=== PATIENT | male | born 1980 | race Caucasian/White ===

== ENCOUNTER 2021-04-30 14:40 | Inpatient (IN) | payer OTHER, SELFPAY ==
--- NOTE | ~2021-04-30 | CT_ITS ---
EXAMINATION: CT abdomen pelvis w con DATE: 04/30/2021 16:37 INDICATION: Pelvic discomfort with left-sided pelvic pain TECHNIQUE: Computed tomography (CT) of the abdomen and pelvis was performed with 100 mL Omnipaque-350 intravenous contrast. Automated exposure control and iterative reconstruction technique were employe d. The dose-length product was 200.04 mGy-cm. COMPARISON: None FINDINGS: Mild emphysema in the right middle lobe. Heart size is normal. No pericardial or pleural effusion. Th ere are pulmonary emboli in each of the basilar segmental pulmonary arteries and many of the subsegme ntal pulmonary arteries of the left lower lobe. There is also deep venous thrombosis in the left supe rficial femoral and common femoral veins. Small enhancing paraesophageal lymph node. There are 5 large peripherally enhancing centrally lower attenuation likely necrotic masses throughou t the liver which measure between 8.2 cm and 3.4 cm . Numerous additional less than 2.5 cm scattered low-attenuation, peripherally enhancing masses are seen many of the remaining organs,, port in the ri ght kidney, 5 and the left kidney, 2 in the spleen, 4 in the head and body of the pancreas 2 in the l eft adrenal gland and one in the right adrenal gland. 1.8 cm enhancing nodule in the retroperitoneal fat anterior to the right iliac crest, 10 mm peripherally enhancing nodule in the more caudal right p soas muscle. A few subcentimeter enhancing nodules the muscles in the left quadratus lumborum muscle just lateral to the left L3 transverse process and in the right gluteus jarocho muscle. A couple subc entimeter enhancing nodules in the subcutaneous fat anterior to the left rectus abdominis muscle and at the left buttock. Gallbladder is normal. Bilateral nonobstructing nephrolithiasis with 3 mm nonobstructing stone in an upper pole calyx of the right kidney and four <3 mm stones in the left kidney. No abnormal bowel wall thickening or obstruction. Bladder is normal. No free intraperitoneal gas or fluid. There are severa l mildly enlarged and heterogeneously enhancing left inguinal lymph nodes as well as at the distal le ft common iliac chain. No suspicious lytic or blastic bone lesions. IMPRESSION: 1. Pulmonary emboli in multiple left lower lobar pulmonary arteries as well as deep venous thrombosis at the left common femoral and superficial femoral veins. 2. Widespread likely metastatic disease involving the liver, spleen, pancreas, bilateral adrenal glan ds and kidneys as well as several scattered heterogeneous enhancing likely metastatic lymph nodes and a few small enhancing nodules in the muscles and subcutaneous and retroperitoneal fat. Muscular fatt y metastatic lesions are somewhat atypical/abdomen the setting of melanoma. Would recommend ultrasoun d-guided biopsy of the left inguinal lymph nodes and physical exam for skin lesions along the left lo wer extremity. This and the findings of pulmonary emboli and deep venous thrombosis were discussed wi Dr. Estrada at 5:00 PM 3. Nonobstructing bilateral nephrolithiasis. 4. Mild emphysema in the right middle lobe. Reviewed, dictated and finalized at location B. [facility] IMPRESSION: 1. Pulmonary emboli in multiple left lower lobar pulmonary arteries as well as deep venous thrombosis at the left common femoral and superficial femoral veins . 2. Widespread likely metastatic disease involving the liver, spleen, pancreas, bilateral adrenal glands and kidneys as well as several scattered heterogeneous enhancing likely metastatic lymph nodes and a few small enhancing nodules in t he muscles and subcutaneous and retroperitoneal fat. Muscular fatty metastatic lesions are somewhat atypical/abdomen the setting of melanoma. Would recommend ultrasound-guided biopsy of th
--- NOTE | ~2021-04-30 | US_ITS ---
EXAMINATION: US biopsy lymph node DATE: 05/01/2021 11:09 INDICATION: Enlarged left inguinal lymph nodes TECHNIQUE: The procedure including the risks and benefits was discussed with the patient. Risks discu ssed included bleeding and infection. The patient understood the risks and agreed to proceed. The sk in overlying the left groin was prepped and draped in usual sterile fashion. Anesthetic was administ ered with 1% lidocaine subcutaneously. An 18 gauge core biopsy needle was advanced under continuous ultrasound observation to the lesion of interest. 3 core biopsy specimens were obtained. The needle was removed and the entry site was cleaned and dressed. Post procedure ultrasound demonstrated no h emorrhage. FINDINGS: Ultrasound images demonstrate a 3.9 x 1.8 x 3.1 enlarged left inguinal lymph nodes. Subsequ ent images demonstrate biopsy needle advanced into the lymph node. IMPRESSION: 1. Successful Ultrasound-guided biopsy of 3.9 x 1.8 x 3.1 cm left inguinal lymph node. Reviewed, dictated and finalized at location B. [facility] IMPRESSION: 1. Successful Ultrasound-guided biopsy of 3.9 x 1.8 x 3.1 cm left inguinal lymp h node.
[2021-04-30 14:50] VITALS: BP 93/78; PULSE 95; RESP 20; TEMP 36.4; O2SAT 97
[2021-04-30] MEDS: SODIUM CHLORIDE 0.9% IV 1,000 ML 999 ML IV CONT ×2 (15:40→17:21)
[2021-04-30 15:43] LABS: Hematocrit 43.3 % (40.0-54.0); Mean Corpuscular HGB Conc 32.3 g/dL (32.0-36.0); Mean Corpuscular Hemoglobin 29.7 pg (27.0-31.0); Mean Corpuscular Volume 91.7 fL (78.0-102.0); Mean Platelet Volume 9.9 fl (8.7-11.0); Platelet Count Result 286 K/mm3 (150-420); Red Blood Count 4.72 M/mm3 (4.70-6.10)
[2021-04-30] MEDS: MORPHINE SULFATE (*CRX) 2 MG/ML INJ IV PUSH ×3 (15:45→23:59)
--- NOTE | 2021-04-30 15:45 | PC.NURSE ---
Lab called with WBC of 22.0. Dr. Valencia notified.
--- NOTE | 2021-04-30 15:49 | PC.NURSE ---
report to LEXY Valencia. resuming care of patient.
[2021-04-30 16:00] VITALS: BP 107/80; PULSE 77; RESP 14; O2SAT 100
[2021-04-30 16:01] LABS: Alanine Aminotransferase 15 U/L (16-63); Alkaline Phosphatase 257 U/L (46-116); Anion Gap 13 mmol/L (8-16); Aspartate Amino Transferase 18 U/L (15-37); Bilirubin,Total 0.3 mg/dL (0.00-1.00); Blood Urea Nitrogen 67 mg/dL (7-18); Calcium 9.7 mg/dL (8.5-10.1); Carbon Dioxide 27 mmol/L (21-32); Chloride 96 mmol/L (98-108); Estimated CRCL calculation 35 ml/min; Estimated Glomerular Filt Rate 34; Glucose 84 mg/dL (70-99); Osmolality Calculated 300 mOsm/kg (285-295); Potassium 3.8 mmol/L (3.5-5.1); Sodium 136 mmol/L (136-145); Total Protein 8.5 g/dL (6.4-8.2)
[2021-04-30 16:05] LABS: Lactic Acid Reflex 1.1 mmol/L (0.4-2.0)
[2021-04-30 16:13] LABS: CRP 12.2 mg/dL (0.0-0.9)
[2021-04-30 16:21] LABS: Add Urine Microscopic? YES; Appearance Urine Clear (Clear); Bilirubin Urine Negative (Negative); Blood Urine 2+ (Negative); Color Urine Yellow (Yellow); Glucose Urine UA Negative (Negative); Ketones Urine Negative (Negative); Leukocyte Esterase Ur Negative (Negative); Nitrate Urine Negative (Negative); Protein Urine Negative (Negative); Specific Grav Ur 1.025 (1.010-1.020); Urobilinogen Urine 0.2 mg/dL (0.2-1.0); pH Urine 5.5 (5.0-8.0)
[2021-04-30 16:25] LABS: Bacteria Urine 1+ /hpf; Squamous Epithelial Cell Urine Rare /hpf (Few); WBC Urine None seen /hpf (0-3)
[2021-04-30 16:26] LABS: Band Neutrophils Percent 2 % (0-6); Basophils Percent Manual 0 % (0-1); Eosinophils Absolute Manual 1.76 K/mm3 (0.02-0.5); Eosinophils Percent Manual 8 % (1-6); Lymphocytes Absolute Manual 1.98 K/mm3 (1.1-4.5); Lymphocytes Percent Manual 9 % (18-44); Monocytes Absolute Manual 0.88 K/mm3 (0.1-0.90); Monocytes Percent Manual 4 % (3-9); Neutrophils Absolute Manual 17.38 K/mm3 (1.3-6.7); Neutrophils Percent Manual 77 % (46-73); Platelet Estimate Adequate (Adequate); Total Cells Counted 100
[2021-04-30 17:00] VITALS: BP 101/73; PULSE 77; RESP 14; O2SAT 99
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
[2021-04-30 17:56] VITALS: BP 102/76; PULSE 85; RESP 16; TEMP 36.6; O2SAT 100
[2021-04-30 18:30] VITALS: BP 98/72; PULSE 82; RESP 16; O2SAT 100
[2021-04-30 18:53] VITALS: BMI 14.6
[2021-04-30] MEDS: SODIUM CHLORIDE 0.9% IV 1,000 ML 100 ML IV CONT (19:52)
[2021-04-30] MEDS: ENOXAPARIN 60 MG/0.6 ML SYRINGE SUB-Q (19:52)
[2021-04-30 20:00] VITALS: BP 105/67; PULSE 92; RESP 20; TEMP 36.2; O2SAT 95
[2021-04-30] MEDS: DIVALPROEX SODIUM DR 250 MG TABEC 500 MG PO (20:03)
--- NOTE | 2021-04-30 20:17 | ADMGEN ---
This patient, Marcus Rodriguez, was admitted to 2nd Floor Room 227-2. Patient/family oriented to hospital policies and general routines including ID bracelet, bed and alarms, visiting hours, pain management, procedures, bathroom and other care routines, personal items, smoking policy, room service/diet, and visiting hours. Information on how to activate the Rapid Response Team has been discussed. Patient/Family are encouraged to report perceived risks to care and to ask questions if they do not understand what they are told or what they should do.
--- NOTE | 2021-04-30 22:23 | PC.NURSE ---
pt requesting more pain medicine, aware he can't have more until 2352, urinal emptied and placed within reach, call light on lap
[2021-05-01] VITALS: BP 98/69; PULSE 75; RESP 18; TEMP 36.6; O2SAT 97
[2021-05-01 04:00] VITALS: BP 97/64; PULSE 73; RESP 18; TEMP 36.2; O2SAT 96
[2021-05-01] MEDS: MORPHINE SULFATE (*CRX) 2 MG/ML INJ IV PUSH ×5 (04:12→21:02)
[2021-05-01 05:25] LABS: Basophils Percent Auto 0.6 % (0.0-1.0); Eosinophils Absolute Auto 1.78 K/mm3 (0.02-0.50); Hematocrit 35.7 % (40.0-54.0); Hemoglobin 11.2 g/dL (14.0-18.0); Immature Granulocyte Absolute 0.11 K/mm3 (0.00-0.00); Immature Granulocyte Percent A 0.6 % (0.0-0.0); Lymphocytes Absolute Auto 1.71 K/mm3 (1.10-4.50); Lymphocytes Percent Auto 9.6 % (18.0-42.0); Mean Corpuscular HGB Conc 31.4 g/dL (32.0-36.0); Mean Corpuscular Hemoglobin 29.3 pg (27.0-31.0); Mean Corpuscular Volume 93.5 fL (78.0-102.0); Monocytes Absolute Auto 1.38 K/mm3 (0.10-0.90); Monocytes Percent Auto 7.7 % (2.0-11.0); Neutrophils Absolute Auto 12.8 K/mm3 (1.7-7.2); Neutrophils Percent Auto 71.5 % (50.0-70.0); Platelet Count Result 236 K/mm3 (150-420); Red Blood Count 3.82 M/mm3 (4.70-6.10); White Blood Count 17.9 K/mm3 (4.8-10.8)
[2021-05-01 05:39] LABS: INR 1.2; Partial Thromboplastin Time 35.3 SEC (23.90-30.70)
[2021-05-01 05:45] LABS: Alanine Aminotransferase 11 U/L (16-63); Albumin Level 2.3 g/dL (3.4-5.0); Alkaline Phosphatase 174 U/L (46-116); Anion Gap 12 mmol/L (8-16); Aspartate Amino Transferase 12 U/L (15-37); Bilirubin,Total 0.2 mg/dL (0.00-1.00); Blood Urea Nitrogen 38 mg/dL (7-18); Calcium 8.2 mg/dL (8.5-10.1); Carbon Dioxide 22 mmol/L (21-32); Chloride 102 mmol/L (98-108); Estimated CRCL calculation 46 ml/min; Estimated Glomerular Filt Rate 59; Glucose 99 mg/dL (70-99); Osmolality Calculated 291 mOsm/kg (285-295); Potassium 3.7 mmol/L (3.5-5.1); Sodium 136 mmol/L (136-145); Total Protein 5.9 g/dL (6.4-8.2)
[2021-05-01] MEDS: SODIUM CHLORIDE 0.9% IV 1,000 ML 100 ML IV CONT ×2 (06:08→17:59)
[2021-05-01] MEDS: ENOXAPARIN 60 MG/0.6 ML SYRINGE SUB-Q ×2 (06:09→18:00)
[2021-05-01 08:00] VITALS: BP 102/53; PULSE 74; RESP 14; TEMP 36.6; O2SAT 97
[2021-05-01] MEDS: levETIRAcetam 500 MG TABLET 750 MG PO ×2 (09:09→20:59)
[2021-05-01] MEDS: DIVALPROEX SODIUM DR 250 MG TABEC 500 MG PO ×2 (09:09→21:00)
[2021-05-01 12:00] VITALS: BP 110/60; PULSE 80; RESP 14; TEMP 36.8; O2SAT 98
--- NOTE | 2021-05-01 14:54 | PC.NURSE ---
Pt has left groin BX site. Site is dry and covered by a band aid .
--- NOTE | 2021-05-01 15:33 | PHAR ---
confirmed w/merlyn that pt is going to supply his own zonisamide.
[2021-05-01 16:00] VITALS: BP 103/67; PULSE 78; RESP 16; TEMP 36.5; O2SAT 95
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
[2021-05-01] MEDS: ZONISAMIDE 100 MG CAPSULE 200 MG PO (19:00)
[2021-05-01 20:00] VITALS: BP 110/60; PULSE 72; RESP 18; TEMP 36.4; O2SAT 97
[2021-05-02] VITALS: BP 107/63; PULSE 68; RESP 16; TEMP 36.8; O2SAT 93
[2021-05-02] MEDS: MORPHINE SULFATE (*CRX) 2 MG/ML INJ IV PUSH ×5 (03:50→23:13)
[2021-05-02 04:00] VITALS: BP 108/64; PULSE 65; RESP 18; TEMP 36.4; O2SAT 93
[2021-05-02 05:15] LABS: Hematocrit 37.7 % (40.0-54.0); Hemoglobin 11.1 g/dL (14.0-18.0); Mean Corpuscular HGB Conc 29.4 g/dL (32.0-36.0); Mean Corpuscular Volume 101.9 fL (78.0-102.0); Platelet Count Result 242 K/mm3 (150-420); Red Cell Distribution Width 13.2 % (11.6-14.4)
[2021-05-02 05:27] LABS: Anion Gap 11 mmol/L (8-16); Blood Urea Nitrogen 17 mg/dL (7-18); Calcium 8.3 mg/dL (8.5-10.1); Carbon Dioxide 21 mmol/L (21-32); Chloride 107 mmol/L (98-108); Estimated CRCL calculation 69 ml/min; Estimated Glomerular Filt Rate > 60; Glucose 85 mg/dL (70-99); Osmolality Calculated 288 mOsm/kg (285-295); Potassium 3.9 mmol/L (3.5-5.1); Sodium 139 mmol/L (136-145)
[2021-05-02] MEDS: ENOXAPARIN 60 MG/0.6 ML SYRINGE SUB-Q ×2 (05:36→17:01)
[2021-05-02] MEDS: SODIUM CHLORIDE 0.9% IV 1,000 ML 100 ML IV CONT (05:39)
[2021-05-02 08:00] VITALS: BP 100/64; PULSE 60; RESP 18; TEMP 36.2; O2SAT 94
[2021-05-02] MEDS: DIVALPROEX SODIUM DR 250 MG TABEC 500 MG PO ×2 (09:59→20:48)
[2021-05-02] MEDS: levETIRAcetam 500 MG TABLET 750 MG PO ×2 (09:59→20:48)
[2021-05-02] MEDS: ZONISAMIDE 100 MG CAPSULE 200 MG PO ×2 (10:00→17:01)
--- NOTE | 2021-05-02 11:41 | PM.IMPN ---
Progress Note: A&P Assessment and Plan (1) Lymphadenopathy, inguinal: Code(s): R59.0 - Localized enlarged lymph nodes Status: Acute Assessment and Plan: CT Abd/Pel w/ contrast: IMPRESSION: 1. Pulmonary emboli in multiple left lower lobar pulmonary arteries as well as deep venous thrombosis at the left common femoral and superficial femoral veins. 2. Widespread likely metastatic disease involving the liver, spleen, pancreas, bilateral adrenal glands and kidneys as well as several scattered heterogeneous enhancing likely metastatic lymph nodes and a few small enhancing nodules in the muscles and subcutaneous and retroperitoneal fat. Muscular fatty metastatic lesions are somewhat atypical/abdomen the setting of melanoma. Would recommend ultrasound-guided biopsy of the left inguinal lymph nodes and physical exam for skin lesions along the left lower extremity. This and the findings of pulmonary emboli and deep venous thrombosis were discussed with Dr. Estrada at 5:00 PM 3. Nonobstructing bilateral nephrolithiasis. 4. Mild emphysema in the right middle lobe. EXAMINATION: US biopsy lymph node FINDINGS: Ultrasound images demonstrate a 3.9 x 1.8 x 3.1 enlarged left inguinal lymph nodes. Subsequent images demonstrate biopsy needle advanced into the lymph node. IMPRESSION: 1. Successful Ultrasound-guided biopsy of 3.9 x 1.8 x 3.1 cm left inguinal lymph node. Tissue sample sent for Cytology and Pathology, Zosyn, renal dosing, WBC was 22 now 17.9, Morphine PRN for pain management, currently no complaint of intolerable pain. 05/02/2021 contacted Lab regarding Tissue Biopsy which was sent to outside facility, will be looking for results but do not expect to see these for a few days. (2) DVT (deep venous thrombosis): Qualifiers: Affected thrombotic vein of extremity: femoral Chronicity: acute DVT location: lower extremity Laterality: left Qualified Code(s): I82.412 - Acute embolism and thrombosis of left femoral vein Code(s): I82.409 - Acute embolism and thrombosis of unspecified deep veins of unspecified lower extremity Status: Acute Assessment and Plan: Therapeutic Lovenox 60 mg BID, monitor for bleeding, H/H 11.2/35.7, no bleeding noticed, PT/INR 13/1.2, APTT 35.3, Cr 1.34 05/02/2021 Continue (3) Pulmonary air embolism: Qualifiers: Encounter type: initial encounter Qualified Code(s): T79.0XXA - Air embolism (traumatic), initial encounter Code(s): T79.0XXA - Air embolism (traumatic), initial encounter Status: Acute Assessment and Plan: See note under DVT (4) Traumatic brain injury: Qualifiers: Encounter type: sequela Code(s): S06.9X9A - Unspecified intracranial injury with loss of consciousness of unspecified duration, initial encounter Status: Acute Assessment and Plan: Cause for Pt being treated for Seizures, Left side hemiparesis (5) Seizures: Code(s): R56.9 - Unspecified convulsions Status: Acute Assessment and Plan: Depakote, Rachel, Keppra 05/02/2021 no seizure activity reported Subjective Date/time seen: 05/02/21 11:41 Pt in room resting comfortably. Pt did not have any complaints of pain that was intolerable. There has not been reports of him not sleeping well. His mother did come to visit and she is concerned about his pain control. Pt now admits that he has a very short sharp pain in the left side of the chest that comes on and lasts about a second and then goes away. He states that he does not tolerate the pain when it is actually happening but once it is over he is fine. I did ask if he wanted anything for this pain and after being silent for a moment he indicated that he did not want anything at this time. Mother asked indicated that the Pt had not been getting much rest. I explained that nothing was reported to me from staff or the Pt. The Pt then indicated that he has only been feeling like he has been getting
[2021-05-02 12:00] VITALS: BP 110/65; PULSE 70; RESP 20; TEMP 36.8; O2SAT 95
[2021-05-02] MEDS: DEXTROSE 5%/0.9% SOD CHL 1,000 ML 100 ML IV CONT (15:00)
[2021-05-02 16:00] VITALS: BP 107/66; PULSE 67; RESP 18; TEMP 36.8; O2SAT 96
[2021-05-02 20:00] VITALS: BP 115/67; PULSE 71; RESP 16; TEMP 37.1; O2SAT 93
[2021-05-03] VITALS: BP 96/48; PULSE 66; RESP 14; TEMP 37.2; O2SAT 95
[2021-05-03] MEDS: DEXTROSE 5%/0.9% SOD CHL 1,000 ML 100 ML IV CONT ×2 (01:33→11:35)
[2021-05-03] MEDS: MORPHINE SULFATE (*CRX) 2 MG/ML INJ IV PUSH ×5 (03:30→21:12)
[2021-05-03 04:00] VITALS: BP 99/48; PULSE 61; RESP 14; TEMP 36.9; O2SAT 96
[2021-05-03 05:44] LABS: Hematocrit 37.2 % (40.0-54.0); Hemoglobin 11.4 g/dL (14.0-18.0); Mean Corpuscular HGB Conc 30.6 g/dL (32.0-36.0); Mean Corpuscular Volume 94.7 fL (78.0-102.0); Mean Platelet Volume 10.2 fl (8.7-11.0); Platelet Count Result 273 K/mm3 (150-420); Red Blood Count 3.93 M/mm3 (4.70-6.10); Red Cell Distribution Width 13.2 % (11.6-14.4); White Blood Count 17.6 K/mm3 (4.8-10.8)
[2021-05-03] MEDS: ENOXAPARIN 60 MG/0.6 ML SYRINGE SUB-Q ×2 (05:46→17:06)
[2021-05-03 05:55] LABS: Anion Gap 10 mmol/L (8-16); Blood Urea Nitrogen 11 mg/dL (7-18); Calcium 8.2 mg/dL (8.5-10.1); Carbon Dioxide 22 mmol/L (21-32); Chloride 109 mmol/L (98-108); Estimated CRCL calculation 66 ml/min; Estimated Glomerular Filt Rate > 60; Glucose 94 mg/dL (70-99); Osmolality Calculated 291 mOsm/kg (285-295); Potassium 3.6 mmol/L (3.5-5.1); Sodium 141 mmol/L (136-145)
[2021-05-03 08:00] VITALS: BP 119/68; PULSE 62; RESP 18; TEMP 37; O2SAT 96
[2021-05-03] MEDS: DIVALPROEX SODIUM DR 250 MG TABEC 500 MG PO ×2 (09:37→20:55)
[2021-05-03] MEDS: levETIRAcetam 500 MG TABLET 750 MG PO ×2 (09:37→20:55)
[2021-05-03] MEDS: ZONISAMIDE 100 MG CAPSULE 200 MG PO ×2 (09:37→17:06)
[2021-05-03 12:00] VITALS: BP 113/62; PULSE 68; RESP 18; TEMP 36.4; O2SAT 96
[2021-05-03] MEDS: HYDROcodone/acetaminophen (*CRX) 7.5-325 MG TABLET 1 TAB PO ×2 (14:44→23:14)
[2021-05-03 15:47] VITALS: BP 109/69; PULSE 57; RESP 18; TEMP 36.4; O2SAT 98
--- NOTE | 2021-05-03 16:31 | PM.IMPN ---
Progress Note: A&P Assessment and Plan (1) Lymphadenopathy, inguinal: Code(s): R59.0 - Localized enlarged lymph nodes <GEOVANNY Mcpherson - Last Filed: 05/03/21 16:40> Status: Acute <GEOVANNY Mcpherson - Last Filed: 05/03/21 16:40> Assessment and Plan: CT Abd/Pel w/ contrast: IMPRESSION: 1. Pulmonary emboli in multiple left lower lobar pulmonary arteries as well as deep venous thrombosis at the left common femoral and superficial femoral veins. 2. Widespread likely metastatic disease involving the liver, spleen, pancreas, bilateral adrenal glands and kidneys as well as several scattered heterogeneous enhancing likely metastatic lymph nodes and a few small enhancing nodules in the muscles and subcutaneous and retroperitoneal fat. Muscular fatty metastatic lesions are somewhat atypical/abdomen the setting of melanoma. Would recommend ultrasound-guided biopsy of the left inguinal lymph nodes and physical exam for skin lesions along the left lower extremity. This and the findings of pulmonary emboli and deep venous thrombosis were discussed with Dr. Estrada at 5:00 PM 3. Nonobstructing bilateral nephrolithiasis. 4. Mild emphysema in the right middle lobe. EXAMINATION: US biopsy lymph node FINDINGS: Ultrasound images demonstrate a 3.9 x 1.8 x 3.1 enlarged left inguinal lymph nodes. Subsequent images demonstrate biopsy needle advanced into the lymph node. IMPRESSION: 1. Successful Ultrasound-guided biopsy of 3.9 x 1.8 x 3.1 cm left inguinal lymph node. Tissue sample sent for Cytology and Pathology, Zosyn, renal dosing, WBC was 22 now 17.9, Morphine PRN for pain management, currently no complaint of intolerable pain. 05/02/2021 contacted Lab regarding Tissue Biopsy which was sent to outside facility, will be looking for results but do not expect to see these for a few days. 05/03/2021 If Pt is unable to be transferred by Tuesday will likely DC with close follow up with PCP. <GEOVANNY Mcpherson - Last Filed: 05/03/21 16:40> (2) DVT (deep venous thrombosis): Qualifiers: Affected thrombotic vein of extremity: femoral Chronicity: acute DVT location: lower extremity Laterality: left Qualified Code(s): I82.412 - Acute embolism and thrombosis of left femoral vein <GEOVANNY Mcpherson - Last Filed: 05/03/21 16:40> Code(s): I82.409 - Acute embolism and thrombosis of unspecified deep veins of unspecified lower extremity <Tc MejíaJIM abraham-C - Last Filed: 05/03/21 16:40> Status: Acute <Tc DiazJIM-C - Last Filed: 05/03/21 16:40> Assessment and Plan: Therapeutic Lovenox 60 mg BID, monitor for bleeding, H/H 11.2/35.7, no bleeding noticed, PT/INR 13/1.2, APTT 35.3, Cr 1.34 05/02/2021 Continue 05/03/2021 ... <Tc MejíaJIM abraham-C - Last Filed: 05/03/21 16:40> (3) Pulmonary air embolism: Qualifiers: Encounter type: initial encounter Qualified Code(s): T79.0XXA - Air embolism (traumatic), initial encounter <Tc MejíaJIM abraham-C - Last Filed: 05/03/21 16:40> Code(s): T79.0XXA - Air embolism (traumatic), initial encounter <Tc MejíaJIM abraham-C - Last Filed: 05/03/21 16:40> Status: Acute <Tc MejíaJIM abraham-C - Last Filed: 05/03/21 16:40> Assessment and Plan: See note under DVT <Tc MejíaJIM abraham-C - Last Filed: 05/03/21 16:40> (4) Traumatic brain injury: Qualifiers: Encounter type: sequela <Tc MejíaJIM abraham-C - Last Filed: 05/03/21 16:40> Code(s): S06.9X9A - Unspecified intracranial injury with loss of consciousness of unspecified duration, initial encounter <Tc MejíaJIM abraham-C - Last Filed: 05/03/21 16:40> Status: Acute <Tc Irwin JIM Diaz-C - Last Filed: 05/03/21 16:40> Assessment and Plan: Cause for Pt being treated for Seizures, Left side hemiparesis <Tc SyMicky Diaz APN-C - Last Filed: 05/03/21 16:40> (5) Seizures: Co
[2021-05-03 20:00] VITALS: BP 101/63; PULSE 69; RESP 16; TEMP 36.6; O2SAT 95
[2021-05-04] VITALS: BP 108/71; PULSE 68; RESP 14; TEMP 36.9; O2SAT 96
[2021-05-04] MEDS: DEXTROSE 5%/0.9% SOD CHL 1,000 ML 100 ML IV CONT (00:29)
[2021-05-04] MEDS: MORPHINE SULFATE (*CRX) 2 MG/ML INJ IV PUSH ×6 (00:30→21:26)
[2021-05-04 04:00] VITALS: BP 105/52; PULSE 62; RESP 14; TEMP 36.9; O2SAT 96
[2021-05-04] MEDS: ENOXAPARIN 60 MG/0.6 ML SYRINGE SUB-Q ×2 (05:54→17:39)
[2021-05-04 06:06] LABS: Hematocrit 39.1 % (40.0-54.0); Hemoglobin 12.2 g/dL (14.0-18.0); Mean Corpuscular HGB Conc 31.2 g/dL (32.0-36.0); Mean Corpuscular Hemoglobin 29.7 pg (27.0-31.0); Mean Corpuscular Volume 95.1 fL (78.0-102.0); Mean Platelet Volume 10.1 fl (8.7-11.0); Platelet Count Result 290 K/mm3 (150-420); Red Blood Count 4.11 M/mm3 (4.70-6.10); Red Cell Distribution Width 13.3 % (11.6-14.4); White Blood Count 17.6 K/mm3 (4.8-10.8)
[2021-05-04 06:28] LABS: Alanine Aminotransferase 8 U/L (16-63); Albumin Level 1.8 g/dL (3.4-5.0); Alkaline Phosphatase 148 U/L (46-116); Anion Gap 14 mmol/L (8-16); Aspartate Amino Transferase 14 U/L (15-37); Bilirubin,Total 0.3 mg/dL (0.00-1.00); Blood Urea Nitrogen 9 mg/dL (7-18); Calcium 8.2 mg/dL (8.5-10.1); Carbon Dioxide 21 mmol/L (21-32); Chloride 109 mmol/L (98-108); Estimated CRCL calculation 72 ml/min; Estimated Glomerular Filt Rate > 60; Glucose 67 mg/dL (70-99); Osmolality Calculated 294 mOsm/kg (285-295); Potassium 3.6 mmol/L (3.5-5.1); Sodium 144 mmol/L (136-145); Total Protein 5.6 g/dL (6.4-8.2)
[2021-05-04] MEDS: HYDROcodone/acetaminophen (*CRX) 7.5-325 MG TABLET 1 TAB PO ×3 (07:27→23:45)
[2021-05-04 08:00] VITALS: BP 115/76; PULSE 75; RESP 14; TEMP 36.9; O2SAT 95
[2021-05-04] MEDS: levETIRAcetam 500 MG TABLET 750 MG PO ×2 (08:54→21:32)
[2021-05-04] MEDS: DIVALPROEX SODIUM DR 250 MG TABEC 500 MG PO ×2 (08:55→21:32)
[2021-05-04] MEDS: ZONISAMIDE 100 MG CAPSULE 200 MG PO ×2 (08:57→17:44)
--- NOTE | 2021-05-04 09:22 | WPDPN ---
Progress Note: A&P Assessment and Plan (1) Lymphadenopathy, inguinal: Code(s): R59.0 - Localized enlarged lymph nodes Status: Acute Assessment and Plan: CT Abd/Pel w/ contrast: IMPRESSION: 1. Pulmonary emboli in multiple left lower lobar pulmonary arteries as well as deep venous thrombosis at the left common femoral and superficial femoral veins. 2. Widespread likely metastatic disease involving the liver, spleen, pancreas, bilateral adrenal glands and kidneys as well as several scattered heterogeneous enhancing likely metastatic lymph nodes and a few small enhancing nodules in the muscles and subcutaneous and retroperitoneal fat. Muscular fatty metastatic lesions are somewhat atypical/abdomen the setting of melanoma. Would recommend ultrasound-guided biopsy of the left inguinal lymph nodes and physical exam for skin lesions along the left lower extremity. This and the findings of pulmonary emboli and deep venous thrombosis were discussed with Dr. Estrada at 5:00 PM 3. Nonobstructing bilateral nephrolithiasis. 4. Mild emphysema in the right middle lobe. EXAMINATION: US biopsy lymph node FINDINGS: Ultrasound images demonstrate a 3.9 x 1.8 x 3.1 enlarged left inguinal lymph nodes. Subsequent images demonstrate biopsy needle advanced into the lymph node. IMPRESSION: 1. Successful Ultrasound-guided biopsy of 3.9 x 1.8 x 3.1 cm left inguinal lymph node. Tissue sample sent for Cytology and Pathology, Zosyn, renal dosing, WBC was 22 now 17.9, Morphine PRN for pain management, currently no complaint of intolerable pain. 05/02/2021 contacted Lab regarding Tissue Biopsy which was sent to outside facility, will be looking for results but do not expect to see these for a few days. 05/03/2021 If Pt is unable to be transferred by Tuesday will likely DC with close follow up with PCP. Discharge Pathology report indicates - METASTATIC POORLY DIFFERENTIATED ADENOCARCINOMA - ADDENDUM TO FOLLOW WITH SPECIAL STAIN RESULTS. Patient informed of diagnosis Patient will need to follow-up with a hematology oncologist his primary care physician office called and notified they will refer him to our bench tool maker oncologist. Attempted to call his POA his mom to discuss diagnosis no return call back (2) DVT (deep venous thrombosis): Qualifiers: Affected thrombotic vein of extremity: femoral Chronicity: acute DVT location: lower extremity Laterality: left Qualified Code(s): I82.412 - Acute embolism and thrombosis of left femoral vein Code(s): I82.409 - Acute embolism and thrombosis of unspecified deep veins of unspecified lower extremity Status: Acute Assessment and Plan: Therapeutic Lovenox 60 mg BID, monitor for bleeding, H/H 11.2/35.7, no bleeding noticed, PT/INR 13/1.2, APTT 35.3, Cr 1.34 05/02/2021 Continue 05/03/2021 ... Discharge Patient will discharge on Eliquis (3) Pulmonary air embolism: Qualifiers: Encounter type: initial encounter Qualified Code(s): T79.0XXA - Air embolism (traumatic), initial encounter Code(s): T79.0XXA - Air embolism (traumatic), initial encounter Status: Acute Assessment and Plan: See note under DVT Discharge Patient will discharge on Eliquis (4) Traumatic brain injury: Qualifiers: Encounter type: sequela Code(s): S06.9X9A - Unspecified intracranial injury with loss of consciousness of unspecified duration, initial encounter Status: Acute Assessment and Plan: Cause for Pt being treated for Seizures, Left side hemiparesis (5) Seizures: Code(s): R56.9 - Unspecified convulsions Status: Acute Assessment and Plan: Depakote, Zonegran, Keppra 05/02/2021 no seizure activity reported 05/03/2021 No seizures reported (6) Elevated WBCs: Code(s): D72.829 - Elevated white blood cell count, unspecified Status: Acute Assessment and Plan: Possibly secondary to septic emboli versus CV
--- NOTE | 2021-05-04 10:28 | PHAR ---
05/04/21: verified pt.'s home med zonisamide.
[2021-05-04 15:45] VITALS: BP 115/78; PULSE 75; RESP 18; TEMP 36.9; O2SAT 96
[2021-05-04] MEDS: DOCUSATE SODIUM 100 MG CAPSULE PO (21:24)
[2021-05-04] MEDS: hydrOXYzine HCL 25 MG TABLET PO (21:31)
[2021-05-05] VITALS: BP 102/67; PULSE 69; RESP 18; TEMP 36.8; O2SAT 96
[2021-05-05] MEDS: MORPHINE SULFATE (*CRX) 2 MG/ML INJ IV PUSH ×3 (01:38→09:37)
[2021-05-05] MEDS: ENOXAPARIN 60 MG/0.6 ML SYRINGE SUB-Q (05:41)
[2021-05-05 05:51] LABS: Hemoglobin 12.1 g/dL (14.0-18.0); Mean Corpuscular Hemoglobin 29.3 pg (27.0-31.0); Mean Corpuscular Volume 94.4 fL (78.0-102.0); Mean Platelet Volume 9.8 fl (8.7-11.0); Platelet Count Result 288 K/mm3 (150-420); Red Blood Count 4.13 M/mm3 (4.70-6.10); Red Cell Distribution Width 13.4 % (11.6-14.4); White Blood Count 18.6 K/mm3 (4.8-10.8)
[2021-05-05 05:56] LABS: Alanine Aminotransferase 17 U/L (16-63); Albumin Level 1.8 g/dL (3.4-5.0); Alkaline Phosphatase 160 U/L (46-116); Anion Gap 12 mmol/L (8-16); Aspartate Amino Transferase 13 U/L (15-37); Bilirubin,Total 0.3 mg/dL (0.00-1.00); Blood Urea Nitrogen 10 mg/dL (7-18); Calcium 8.6 mg/dL (8.5-10.1); Carbon Dioxide 24 mmol/L (21-32); Chloride 107 mmol/L (98-108); Estimated CRCL calculation 71 ml/min; Estimated Glomerular Filt Rate > 60; Glucose 80 mg/dL (70-99); Osmolality Calculated 294 mOsm/kg (285-295); Potassium 3.6 mmol/L (3.5-5.1); Sodium 143 mmol/L (136-145); Total Protein 6.2 g/dL (6.4-8.2)
[2021-05-05] MEDS: HYDROcodone/acetaminophen (*CRX) 7.5-325 MG TABLET 1 TAB PO ×2 (07:39→12:24)
[2021-05-05 08:00] VITALS: BP 109/69; PULSE 75; RESP 16; TEMP 36.8; O2SAT 98
[2021-05-05] MEDS: ZONISAMIDE 100 MG CAPSULE 200 MG PO (09:34)
[2021-05-05] MEDS: DIVALPROEX SODIUM DR 250 MG TABEC 500 MG PO (09:35)
[2021-05-05] MEDS: DOCUSATE SODIUM 100 MG CAPSULE PO (09:36)
[2021-05-05] MEDS: levETIRAcetam 500 MG TABLET 750 MG PO (09:36)
--- NOTE | 2021-05-05 14:20 | PM.DS ---
DS: Admitting Diagnosis Discharge Date 05/05/2021 Admitting Diagnosis Metastatic disease DS: Discharge Diagnosis Discharge Diagnosis (1) Lymphadenopathy, inguinal: Code(s): R59.0 - Localized enlarged lymph nodes Status: Acute Assessment and Plan: CT Abd/Pel w/ contrast: IMPRESSION: 1. Pulmonary emboli in multiple left lower lobar pulmonary arteries as well as deep venous thrombosis at the left common femoral and superficial femoral veins. 2. Widespread likely metastatic disease involving the liver, spleen, pancreas, bilateral adrenal glands and kidneys as well as several scattered heterogeneous enhancing likely metastatic lymph nodes and a few small enhancing nodules in the muscles and subcutaneous and retroperitoneal fat. Muscular fatty metastatic lesions are somewhat atypical/abdomen the setting of melanoma. Would recommend ultrasound-guided biopsy of the left inguinal lymph nodes and physical exam for skin lesions along the left lower extremity. This and the findings of pulmonary emboli and deep venous thrombosis were discussed with Dr. Estrada at 5:00 PM 3. Nonobstructing bilateral nephrolithiasis. 4. Mild emphysema in the right middle lobe. EXAMINATION: US biopsy lymph node FINDINGS: Ultrasound images demonstrate a 3.9 x 1.8 x 3.1 enlarged left inguinal lymph nodes. Subsequent images demonstrate biopsy needle advanced into the lymph node. IMPRESSION: 1. Successful Ultrasound-guided biopsy of 3.9 x 1.8 x 3.1 cm left inguinal lymph node. Tissue sample sent for Cytology and Pathology, Zosyn, renal dosing, WBC was 22 now 17.9, Morphine PRN for pain management, currently no complaint of intolerable pain. 05/02/2021 contacted Lab regarding Tissue Biopsy which was sent to outside facility, will be looking for results but do not expect to see these for a few days. 05/03/2021 If Pt is unable to be transferred by Tuesday will likely DC with close follow up with PCP. Discharge Pathology report indicates - METASTATIC POORLY DIFFERENTIATED ADENOCARCINOMA - ADDENDUM TO FOLLOW WITH SPECIAL STAIN RESULTS. Patient informed of diagnosis Patient will need to follow-up with a hematology oncologist his primary care physician office called and notified they will refer him to our press operator carbon blocks oncologist. Attempted to call his POA his mom to discuss diagnosis no return call back (2) DVT (deep venous thrombosis): Qualifiers: Affected thrombotic vein of extremity: femoral Chronicity: acute DVT location: lower extremity Laterality: left Qualified Code(s): I82.412 - Acute embolism and thrombosis of left femoral vein Code(s): I82.409 - Acute embolism and thrombosis of unspecified deep veins of unspecified lower extremity Status: Acute Assessment and Plan: Therapeutic Lovenox 60 mg BID, monitor for bleeding, H/H 11.2/35.7, no bleeding noticed, PT/INR 13/1.2, APTT 35.3, Cr 1.34 05/02/2021 Continue 05/03/2021 ... Discharge Patient will discharge on Eliquis (3) Pulmonary air embolism: Qualifiers: Encounter type: initial encounter Qualified Code(s): T79.0XXA - Air embolism (traumatic), initial encounter Code(s): T79.0XXA - Air embolism (traumatic), initial encounter Status: Acute Assessment and Plan: See note under DVT Discharge Patient will discharge on Eliquis (4) Traumatic brain injury: Qualifiers: Encounter type: sequela Code(s): S06.9X9A - Unspecified intracranial injury with loss of consciousness of unspecified duration, initial encounter Status: Acute Assessment and Plan: Cause for Pt being treated for Seizures, Left side hemiparesis (5) Seizures: Code(s): R56.9 - Unspecified convulsions Status: Acute Assessment and Plan: DepRachel bettencourt Keppra 05/02/2021 no seizure activity reported 05/03/2021 No seizures reported (6) Elevated WBCs: Code(s): D72.829 - Elevated white blood cell count, unspecif
--- NOTE | 2021-05-05 15:35 | PC.NURSE ---
Pt discharged home with VSS. Discharge instructions given to pt. Medication instructions given to pt. Pt verbalized understanding of all instructions.
--- NOTE | 2021-05-06 14:07 | PC.NURSE ---
Pt doesn't have a phone.
== END 2021-05-05 14:50 | disposition home or self-care (01) | DRG 299 ==
LOC: CHSED 17:30 → CHS2ND 17:41
PROVIDERS: Nurse Practitioner Family; Admitting Provider Emergency Medicine; Emergency Provider Emergency Medicine; PCP Emergency Medicine; Visit Provider Emergency Medicine
DX: I82.412 Acute embolism and thrombosis of left femoral vein (principal); I26.99 Other pulmonary embolism without acute cor pulmonale; A41.9 Sepsis, unspecified organism; G81.94 Hemiplegia, unspecified affecting left nondominant side; Z87.820 Personal history of traumatic brain injury; C77.5 Secondary and unspecified malignant neoplasm of intrapelvic lymph nodes; C80.1 Malignant (primary) neoplasm, unspecified; R56.9 Unspecified convulsions; F17.210 Nicotine dependence, cigarettes, uncomplicated
CPT/HCPCS: 36415; 38505; 74177; 76942; 80048; 80053; 81001; 83605; 85025; 85027; 85610; 85730; 86140; 87040; 88173; 88305; 88342; 96361; 96365; 96375; 99284; 99285; A9270; J1650; J2270; J2543; J7030; J7042; Q9967